=== PATIENT | female | born 1955 | race Caucasian/White ===

== ENCOUNTER 2021-02-26 22:21 | Emergency (ER) | payer MEDICAID ==
[~2021-02-26] VITALS: Ht 162.6 cm; Wt 69.5 kg
[2021-02-26 22:23] VITALS: BP 185/97
--- NOTE | 2021-02-27 00:16 | NUR ---
PT PRESENTS TO ER FOR RIGHT LOWER LEG REDNESS, ITCHING AND PAIN. PT STATES SHE WORE BRAND NEW BOOTS TO THE BAY AREA AND WHEN SHE CAME BACK HER LOWER LEG (CALF DOWN) WAS RED AND ITCHY. PTS RIGHT CALF IS NOTICBLY RED, AND SLIGHTLY WARM TO THE TOUCH.
[2021-02-27] MEDS ORDERED: MICONAZOLE CRM 2%, 15GM TP ONE (01:30)
== END 2021-02-27 01:47 | disposition home or self-care (01) ==
LOC: ED 22:51
DX: L30.8 Other specified dermatitis (principal); B35.3 Tinea pedis; M79.661 Pain in right lower leg
CPT/HCPCS: 99284